=== PATIENT | female | born 1985 | race Hispanic/Latino ===

== ENCOUNTER 2024-02-06 22:27 | Inpatient (IN) | payer BC ==
[2024-02-07 04:08] VITALS: BMI 37.0
[2024-02-07 04:21] LABS: Hematocrit 36.8 % (34.9-44.5); Hemoglobin 12.7 g/dL (12.0-15.5); Mean Corpuscular HGB CONC 34.5 g/dL (32.0-36.0); Mean Corpuscular Hemoglobin 30.8 pg (27.0-33.0); Mean Corpuscular Volume 89.3 fL (81.6-98.3); Mean Platelet Volume 12.7 fL (7.4-10.4); Platelet Count 238 10x3/uL (150-450); RBC Distribution Width 14.5 % (11.5-14.5); Red Blood Cell (RBC) Count 4.12 10x6/uL (3.90-5.03); White Blood Cell (WBC) Count 12.3 10x3/uL (3.5-10.5)
[2024-02-07] MEDS: hydrALAZINE 20 MG/ML VIAL ONE (04:31)
[2024-02-07 04:35] LABS: Creatinine, Urine 44.25 mg/dL (47-110); Protein, Urine Random Quant Less than 10 mg/dL (1-14)
[2024-02-07 04:43] LABS: ALT (SGPT) 16 U/L (8-55); AST (SGOT) 21 U/L (5-34); Alkaline Phosphatase 188 U/L (40-110); Anion Gap 17 mmol/L (10-20); BUN (Urea Nitrogen) 14 mg/dL (7.0-18.7); Bilirubin, Total 0.3 mg/dL (0.2-1.2); Calc. Creatinine Clearance 138 mL/min (70-130); Calcium 9.1 mg/dL (7.8-10.44); Carbon Dioxide 19 mmol/L (22-29); Chloride 104 mmol/L (98-107); Estimated GFR 94; Globulin 3.9 g/dL (2.4-3.5); Glucose 98 mg/dL (70-105); Protein, Total 6.9 g/dL (6.0-8.3); Sodium 136 mmol/L (136-145)
[2024-02-07 04:57] LABS: Syphilis Antibody Nonreactive (Nonreactive); Syphilis Antibody Index 0.12 S/CO (<1.00 Non-Reactive)
[2024-02-07 04:58] LABS: HBsAg Index 0.17 S/CO (0-0.99); Hep B Surf Ag - L&D Non-Reactive S/CO (NonReactive)
[2024-02-07] MEDS ORDERED: HYDROcodone/Acetaminophen 5/325 mg Tablet PO PRN ×2 (06:50→18:09)
[2024-02-07] MEDS ORDERED: Methylergonovine 0.2 MG/ML VIAL IM PRN (06:50)
[2024-02-07] MEDS ORDERED: Acetaminophen 500 MG TAB PO PRN (06:50)
[2024-02-07] MEDS ORDERED: hydrALAZINE 20 MG/ML VIAL SLOW IVP PRN ×2 (06:50→18:09)
[2024-02-07] MEDS ORDERED: Carboprost 250 MCG/ML AMP IM PRN (06:50)
[2024-02-07] MEDS ORDERED: Ibuprofen 800 MG TAB PO PRN (06:50)
[2024-02-07] MEDS ORDERED: Lidocaine 1% (PF) 30 ML VIAL SC PRN (06:50)
[2024-02-07] MEDS ORDERED: Promethazine HCl 25 MG/ML VIAL IM PRN (06:50)
[2024-02-07] MEDS ORDERED: fentaNYL 50 mcg/mL 1 mL Vial SLOW IVP PRN (06:50)
[2024-02-07] MEDS ORDERED: Ondansetron PF 4 MG/2 ML Vial IVP PRN (06:50)
[2024-02-07] MEDS ORDERED: Tranexamic Acid 1,000 MG/10 ML VIAL IVP PRN (06:50)
[2024-02-07] MEDS ORDERED: Butorphanol Tartrate 1 MG/ML VIAL SLOW IVP PRN (06:50)
[2024-02-07] MEDS ORDERED: Misoprostol 200 MCG TAB PR PRN (06:50)
[2024-02-07] MEDS: Lactated Ringer's 1,000 ML IV SCH (07:00)
[2024-02-07] MEDS ORDERED: Oxytocin 30 units/NS 500 ML 500 ML IV SCH (07:00)
[2024-02-07] MEDS: Oxytocin 30 units/NS 500 ML 500 ML IV SCH (17:08)
[2024-02-07] MEDS ORDERED: Preparation H Ointment 28 GM TUBE PR PRN (18:09)
[2024-02-07] MEDS ORDERED: Milk Of Magnesia 30 ML UDCUP PO PRN (18:09)
[2024-02-07] MEDS ORDERED: Bisacodyl 10 MG SUPP PR PRN (18:09)
[2024-02-07] MEDS ORDERED: Erythromycin Base 0.5% Oint 1 GM TUBE ONE (18:31)
[2024-02-07] MEDS: Docusate 100 MG CAP PO SCH (21:37)
[2024-02-07] MEDS: Ibuprofen 800 MG TAB PO SCH (21:37)
[2024-02-07] MEDS: Ferrous Sulfate 325 MG TAB PO SCH (23:08)
[2024-02-08 00:50] LABS: HIV (1/2) Antibody/Antigen Non-Reactive (NonReactive); HIV 1/2 INDEX 0.08 S/CO (<1.00)
[2024-02-08] MEDS: Benzocaine-Menthol 82.5 ML CAN TOP PRN (07:55)
[2024-02-08] MEDS: Prenatal Vitamin 1 TAB PO SCH (07:55)
[2024-02-08] MEDS: Ferrous Sulfate 325 MG TAB PO SCH (08:00)
[2024-02-09 07:38] VITALS: BP 130/75; TEMP 98.2
== END 2024-02-09 13:15 | disposition home or self-care (01) | DRG 807 ==
LOC: CSHLD/OP 22:27 → CSHLD 02-07 01:36 → CSHPED 02-07 18:25
PROVIDERS: ADMIT Family Medicine; ATTEND Family Medicine
PROC: 10E0XZZ Delivery of Products of Conception, External Approach (ICD-10-PCS; principal; 2024-02-07)
PROC: 0KQM0ZZ Repair Perineum Muscle, Open Approach (ICD-10-PCS; 2024-02-07)
PROC: 10907ZC Drainage of Amniotic Fluid, Therapeutic from Products of Conception, Via Natural or Artificial Opening (ICD-10-PCS; 2024-02-07)
DX: O77.0 Labor and delivery complicated by meconium in amniotic fluid (principal); Z37.0 Single live birth; O70.1 Second degree perineal laceration during delivery; Z3A.40 40 weeks gestation of pregnancy; O48.0 Post-term pregnancy
CPT/HCPCS: 36415; 80053; 82570; 84156; 85027; 86780; 86850; 86900; 86901; 87340; 87389; J0360; J2590; J7120